=== PATIENT | female | born 1940 | race Caucasian/White ===

== ENCOUNTER → 2016-12-21 | Outpatient (CLI) | payer MEDICARE, OTHER ==
--- NOTE | 2016-12-21 10:32 | RAD ---
DATE: December 21, 2016 EXAM: DIGITAL SCREEN BILAT W/CAD HISTORY: Routine screening. COMPARISON: Studies back to May 29, 2013. TECHNIQUE: 2D digital CC and MLO views of each breast were obtained. This study was interpreted with the benefit of Computerized Aided Detection (CAD). FINDINGS: The breast parenchyma demonstrates scattered fibroglandular densities, category B. There are scattered benign-appearing calcifications. There is no suspicious grouping microcalcifications. There is no worrisome mass or area of architectural distortion. IMPRESSION: Stable mammogram with benign findings. BI-RADS CATEGORY: 2 BENIGN FINDING RECOMMENDED FOLLOW-UP: 12M 12 MONTH FOLLOW-UP PQRS compliance statement: Patient information was entered into a reminder system with a target due date for the next mammogram. Mammography is a sensitive method for finding small breast cancers, but it does not detect them all and is not a substitute for careful clinical examination. A negative mammogram does not negate a clinically suspicious finding and should not result in delay in biopsying a clinically suspicious abnormality. "Our facility is accredited by the [employer] Mammography [employer]."
== END | disposition home or self-care (01) ==
LOC: MAMMO 08:23
PROVIDERS: ATTEND Obstetrics & Gynecology
DX: Z12.31 Encounter for screening mammogram for malignant neoplasm of breast (principal)
CPT/HCPCS: G0202; 77067

== ENCOUNTER → 2016-12-21 | Outpatient (CLI) | payer MEDICARE, OTHER ==
--- NOTE | 2016-12-21 10:57 | KCIC ---
EXAM: Dual energy x-ray absorptiometry (DEXA). HISTORY: Postmenopausal female presents for osteoporosis screening. COMPARISON: 05/26/2010. TECHNIQUE: Dual energy x-ray absorptiometry of the lumbar spine and left hip was performed. Calculation of bone mineral density based on standard deviations above or below the expected young adult normal value (T-score) was completed. FINDINGS: The average bone mineral density in the 1st through 4th lumbar vertebrae is 1.038 g/cmxcm, corresponding with a T-score of -0.1. There has been a 3.4 percent increase in bone mineral density of the lumbar spine compared to a study dated 05/26/2010. The average total bone mineral density in the left hip is 0.822 g/cmxcm, corresponding with a T-score of -1.0. There has been a 6.0 percent decrease in bone mineral density of the left hip compared to a study dated 05/26/2010. IMPRESSION: 1. Lower limit of normal bone mineral density measured at the left hip. This is consistent with borderline osteopenia. 2. Normal bone mineral density measured at the lumbar spine. Note: Definitions established by the World Health Organization: 1. Normal: T-score is -1.0 or above. 2. Osteopenia: T-score is between -1.0 and -2.5 . 3. Osteoporosis: T-score is -2.5 or below. Electronically signed by: Chloe Mckenzie MD (12/21/2016 10:54 AM) [email or web address]
== END | disposition home or self-care (01) ==
LOC: KCIC DEXA 09:42
PROVIDERS: ATTEND Obstetrics & Gynecology
DX: Z13.820 Encounter for screening for osteoporosis (principal); M85.80 Other specified disorders of bone density and structure, unspecified site; M51.26 Other intervertebral disc displacement, lumbar region; Z78.0 Asymptomatic menopausal state
CPT/HCPCS: 77080

== ENCOUNTER → 2017-03-22 | Outpatient (CLI) | payer MEDICARE, OTHER | END | disposition home or self-care (01) | LOC: SLPLAB 18:27 | DX: G47.33 Obstructive sleep apnea (adult) (pediatric) (principal) | CPT/HCPCS: 95810 ==

== ENCOUNTER → 2017-05-10 | Outpatient (CLI) | payer MEDICARE, OTHER | END | disposition home or self-care (01) | LOC: RT 19:03 | DX: G47.33 Obstructive sleep apnea (adult) (pediatric) (principal) | CPT/HCPCS: 95811 ==

== ENCOUNTER → 2018-01-13 | Outpatient (CLI) | payer MEDICARE, OTHER ==
--- NOTE | 2018-01-13 09:02 | RAD ---
DATE: 01/13/2018 EXAM: MAMMO JEISON SCREENING BILATERAL HISTORY: Routine screening COMPARISON: 12/21/2016 This study was interpreted with the benefit of Computerized Aided Detection (CAD). Breast Density: SCATTERED The breast parenchyma shows scattered fibroglandular densities. Breast parenchyma level B. FINDINGS: 2-D and 3-D tomosynthesis imaging was performed in CC and MLO projections. No new or enlarging breast densities are seen. There are scattered benign type calcifications. No suspicious microcalcifications have developed. IMPRESSION: Stable mammograms without evidence of malignancy. BI-RADS CATEGORY: 2 BENIGN FINDING(S) RECOMMENDED FOLLOW-UP: 12M 12 MONTH FOLLOW-UP PQRS compliance statement: Patient information was entered into a reminder system with a target due date for the next mammogram. Mammography is a sensitive method for finding small breast cancers, but it does not detect them all and is not a substitute for careful clinical examination. A negative mammogram does not negate a clinically suspicious finding and should not result in delay in biopsying a clinically suspicious abnormality. "Our facility is accredited by the [employer] Mammography Program."
== END | disposition home or self-care (01) ==
LOC: MAMMO 08:06
PROVIDERS: ATTEND Obstetrics & Gynecology
DX: Z12.31 Encounter for screening mammogram for malignant neoplasm of breast (principal)
CPT/HCPCS: 77063; 77067

== ENCOUNTER → 2018-03-28 | Outpatient (CLI) | payer MEDICARE, OTHER ==
--- NOTE | 2018-03-28 13:21 | KCIC ---
EXAMINATION: Magnetic resonance imaging (MRI) of the lumbar spine without contrast 03/28/2018 12:30 PM HISTORY: Spinal stenosis. Neurogenic claudication. Prior L1 compression fracture.. TECHNIQUE: Multiplanar multi-weighted MRI of the lumbar spine was performed without intravenous contrast using the standard lumbar spine protocol. Contrast information: None administered. COMPARISON: None available. FINDINGS: Alignment of the lumbar spine is normal. There is mild chronic height loss involving L1 with less than 50 percent height loss. No acute fracture is identified. There is moderate disc height loss at T12-L1. There is mild disc height loss at L4-L5 and L5-S1 with disc desiccation at all levels of lumbar spine. Conus medullaris terminates at L2. Distal spinal cord signal intensity is normal in all sequences. Abdominal aorta is normal in caliber. No suspicious retroperitoneal abnormality is identified. Left posterior renal cortical cyst measures 14 mm. L3-L4: There is a mild circumferential disc bulge. There is mild facet arthropathy. There is no significant neuroforaminal or spinal canal stenosis. L4-L5: There is a mild to moderate disc bulge asymmetric to the right. There is moderate facet arthropathy. There is moderate right and mild left neuroforaminal stenosis. There is mild spinal canal stenosis. L5-S1: There is a disc bulge asymmetric to the left with central disc protrusion. There is moderate facet arthropathy. There is severe left and mild right neuroforaminal stenosis. No spinal canal stenosis. IMPRESSION: Mild degenerative changes of the lumbar spine as described in detail above. Electronically signed by: Gemma Beckham MD (03/28/2018 1:17 PM) [facility]
== END | disposition home or self-care (01) ==
LOC: KCIC MRI 12:28
PROVIDERS: ATTEND Anesthesiology Pain Medicine
DX: M51.27 Other intervertebral disc displacement, lumbosacral region (principal); M47.896 Other spondylosis, lumbar region; M48.061 Spinal stenosis, lumbar region without neurogenic claudication; M12.88 Other specific arthropathies, not elsewhere classified, other specified site; M48.07 Spinal stenosis, lumbosacral region
CPT/HCPCS: 72148

== ENCOUNTER → 2018-10-24 | Outpatient (CLI) | payer MEDICARE, OTHER ==
--- NOTE | 2018-10-24 14:39 | KCIC ---
MRI Thoracic Spine without contrast History: Thoracic radiculitis, chronic back pain, previous injury many years ago Technique: Multiplanar, multi sequential noncontrast MR imaging was performed of the thoracic spine. Comparison: There is no previous similar exam available, correlation made with lumbar spine MRI March 28, 2018 Findings: When counting from above and assuming 7 cervical, 12 thoracic vertebral bodies, and 5 lumbar vertebral bodies, there is transitional anatomy of the lumbar spine with sacralization of what is considered L5. There is mild superior endplate concavity and Schmorl's node T12. Otherwise thoracic vertebral body stature and AP alignment are maintained. There is accentuation of thoracic kyphosis. Thoracic cord caliber is within normal limits without focal signal abnormality. There is a shallow posterior protrusion at T9-T10 slightly indenting the ventral thecal sac in the right lateral recess without significant spinal stenosis. There are multilevel cystic foci in the neural foramina greatest on the right at T6-7 through T9-T10 and on the left at T7-8, T9-10, T10-11. There is some extent of cystic focus into the right lateral recess at the T6-7 level without significant spinal stenosis. Largest focus on the left at T9-T10 measures about 1.8 cm transverse by 0.8 cm AP. There is some variable overall mild degenerative disc disease greatest of mid to inferior thoracic levels greatest T10-11 and T11-12. There are some T2 hyperintense foci of the visualized left kidney, largest about 4.5 cm not fully included. Impression: 1. There are multilevel cystic foci in the neural foramina. These are statistically more likely due to nerve root sleeve cysts although postcontrast imaging is recommended to ensure no abnormal enhancement. 2. There is no significant thoracic spinal stenosis. 3. There is multilevel mild degenerative disc disease greatest of inferior thoracic levels. 4. There is transitional anatomy of the lumbar spine as stated. 5. There are T2 hyperintense foci of the left kidney statistically most likely due to cysts, not fully evaluated. Electronically signed by: Elvis Samuels MD (10/24/2018 2:36 PM) [id number]
== END | disposition home or self-care (01) ==
LOC: KCIC MRI 12:55
PROVIDERS: ATTEND Anesthesiology Pain Medicine
DX: M51.14 Intervertebral disc disorders with radiculopathy, thoracic region (principal); M40.294 Other kyphosis, thoracic region; G89.29 Other chronic pain
CPT/HCPCS: 72146

== ENCOUNTER 2021-01-10 09:25 | Day surgery (SDC) | payer MEDICARE, OTHER ==
[~2021-01-10] VITALS: Ht 162.6 cm; Wt 70.0 kg
[~2021-01-10 09:25] MED LIST: CIPROFLOXACIN 0.3% OPHTH SOLUTION 5ML BOTTLE. OD ONE; IV RINGERS,LACTATED 1000ML 1,000 ML IV SCH; LIDOCAINE 2% JELLY 6ML IN APPLICATOR. OD ONE; PROPARACAINE 0.5% OPHTH SOLUTION 15ML BOTTLE. OD ONE
[2021-01-10 09:57] VITALS: BP 157/70
[2021-01-10] MEDS ORDERED: ATOR20TA58 PO (10:03)
[2021-01-10] MEDS ORDERED: ATEN100T PO (10:03)
[2021-01-10] MEDS ORDERED: MONT-38 PO (10:04)
[2021-01-10] MEDS ORDERED: OXYB15TA18 PO (10:04)
[2021-01-10] MEDS ORDERED: CALC500T30 PO (10:05)
[2021-01-10] MEDS ORDERED: OMEG10005 PO (10:06)
[2021-01-10] MEDS ORDERED: MULT-496 PO (10:06)
[2021-01-10] MEDS ORDERED: ASPI-886 PO (10:07)
[2021-01-10] MEDS ORDERED: ESOM20CA PO (10:08)
[2021-01-10] MEDS: CYCLOPENTOLATE 1% OPHTH SOLUTION 2ML BOTTLE. OD SCH ×3 (10:10→10:20)
[2021-01-10] MEDS: PHENYLEPHRINE 10% OPHTH SOLUTION 5ML BOTTLE. OD SCH ×3 (10:10→10:20)
[2021-01-10] MEDS ORDERED: BALANCED SALT IRRIG OPHTH SOLN 15 ML BOTTLE. ONE (10:36)
[2021-01-10] MEDS ORDERED: NEO/POLYMYX/DEXAMETH OPHTH OINTMENT 3.5GM TUBE. ONE (10:36)
[2021-01-10] MEDS ORDERED: LIDOCAINE 1%/PHENYLEPH 1.5% PF OPHTH 1 ML VIAL. ONE (10:36)
[2021-01-10] MEDS ORDERED: CHONDROIT-SOD-HYALURONATE KIT. ONE (10:37)
[2021-01-10] MEDS ORDERED: LIDOCAINE 2% JELLY 6ML IN APPLICATOR. ONE (10:37)
[2021-01-10] MEDS ORDERED: CHONDROITIN-SOD-HYALURONATE 0.5 ML DISP.SYRIN. ONE (10:37)
[2021-01-10 12:14] VITALS: BP 158/75
--- NOTE | 2021-01-10 13:17 | OP ---
DATE OF SURGERY: 01/10/2021 PREOPERATIVE DIAGNOSIS: Cataract in the right eye. PROCEDURE: Phacoemulsification with posterior chamber intraocular lens implantation of the right eye. INDICATIONS: Painless progressive visual loss and a visually significant cataract and difficulty reading and driving. SURGEON: Keren Finley MD ANESTHESIA: Topical with monitored anesthesia care. DESCRIPTION OF PROCEDURE: The right eye was prepped with Betadine in the usual sterile fashion and draped. A paracentesis was performed followed by instillation of preservative-free phenylephrine admixed with lidocaine and balanced salt solution. A temporal clear corneal incision was made followed by instillation of viscoelastic. A capsulorrhexis was performed followed by hydrodissection. The phacoemulsification handpiece was used to remove the nucleus in a modified stop and chop fashion. The I/A handpiece was used to remove the cortex. Provisc was instilled in the anterior chamber and an Kanu model [id number] with a power of 20.0 diopters was placed into the capsular bag. Balanced salt solution was used to hydrate the corneal wounds and the viscoelastic evacuated with the I/A handpiece. Once no leak was noted, Maxitrol was placed on the eye and the eye shielded and the patient was sent to the recovery room uneventfully. SUSAN DR: Cindy TID: [id number]
== END 2021-01-10 12:52 | disposition home or self-care (01) ==
LOC: SURG 09:25
PROVIDERS: ATTEND Ophthalmology
DX: H25.89 Other age-related cataract (principal); I10 Essential (primary) hypertension; E78.00 Pure hypercholesterolemia, unspecified; M19.90 Unspecified osteoarthritis, unspecified site; K21.9 Gastro-esophageal reflux disease without esophagitis; Z86.73 Personal history of transient ischemic attack (TIA), and cerebral infarction without residual deficits; Z85.828 Personal history of other malignant neoplasm of skin; Z79.82 Long term (current) use of aspirin; Z79.899 Other long term (current) drug therapy; Z98.890 Other specified postprocedural states; Z88.8 Allergy status to other drugs, medicaments and biological substances
CPT/HCPCS: 66984; A4930; J0171; J0690; J1580; J3490; V2632

== ENCOUNTER → 2021-03-17 | Outpatient (CLI) | payer MEDICARE, OTHER ==
[~2021-03-17] MED LIST changes: +ASPI-886 PO; +ATEN100T PO; +ATOR20TA58 PO; +CALC500T30 PO; -CIPROFLOXACIN 0.3% OPHTH SOLUTION 5ML BOTTLE. OD ONE; +ESOM20CA PO; -IV RINGERS,LACTATED 1000ML 1,000 ML IV SCH; -LIDOCAINE 2% JELLY 6ML IN APPLICATOR. OD ONE; +MONT-38 PO; +MULT-496 PO; +OMEG10005 PO; +OXYB15TA18 PO; -PROPARACAINE 0.5% OPHTH SOLUTION 15ML BOTTLE. OD ONE
--- NOTE | 2021-03-17 11:06 | KCIC ---
EXAM: DUAL ENERGY X-RAY ABSORPTIOMETRY (DEXA). HISTORY: Postmenopausal screening. FINDINGS: The lowest measured T-score is -1.4 in the left hip, based on a bone mineral density of 0.7 75 g/cm^2. Refer to the worksheets for full detail. There has been a 5.7 percent decrease in density of the left hip and 6.6 percent decrease in density of the lumbar spine compared to a study performed 12/21/2016. IMPRESSION: 1. Low bone mass. Bone mineral density yields a T-score between -1.0 and -2.5. Fracture risk is incre ased. 2. FRAX report: Not calculated. METHODOLOGY: Dual energy x-ray absorptiometry was performed to measure bone mineral density. The foll owing analysis is based on the 2019 Official Positions of the International Society for Clinical Dens itometry: Measurements of the hips and the average of L1-L4 are preferred. When the spine and/or hip cannot be feasibly measured or interpreted, or in the setting of hyperparathyroidism, distal radial bone minera l density may be measured. The lumbar spine T-score is based on the average bone mineral density of L1-L4. In the setting of art ifact or anatomic abnormality, some lumbar levels may be excluded, and the remaining levels used for calculation. A single lumbar level is not used for diagnosis, and if only a single level is available for assessment, another anatomic site will be used to assign a diagnosis. The hip T-score is based on the bone mineral density measurement of the femoral neck or total proxima l femur of either side, whichever is lowest. Bilateral mean values are not used for diagnosis. The forearm T-score is derived from 33% of the distal radius of the nondominant forearm. Electronically signed by: Chloe Mckenzie MD (03/17/2021 11:03 AM) [id number]
== END ==
LOC: KCIC DEXA 10:03
PROVIDERS: ATTEND Family Medicine
DX: M85.88 Other specified disorders of bone density and structure, other site (principal); Z78.0 Asymptomatic menopausal state
CPT/HCPCS: 77080